=== PATIENT | male | born 1985 | race Caucasian/White ===

== ENCOUNTER 2021-04-29 19:03 | Emergency (ER) | payer MEDICAID, SELFPAY ==
[2021-04-29 19:05] VITALS: BP 141/98; PULSE 93; RESP 16; TEMP 35.9; O2SAT 100; BMI 33.0
[2021-04-29 19:08] VITALS: O2SAT 100
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
[2021-04-29] MEDS: Ondansetron 4 MG/2 ML Vial IV (19:29)
[2021-04-29] MEDS: HYDROmorphone 1 MG/ML Syringe IV ×2 (19:30→23:23)
[2021-04-29] MEDS: Diphth,Pertuss(Acell),Tet Vac 0.5 ML Vial IM (19:31)
[2021-04-29 19:39] LABS: Absolute Lymphocyte Count 4.32 X10^3/uL (0.83-4.51); Absolute Neutrophil Count 7.9 X10^3/uL (2.0-7.7); Basophil# 0.06 X10^3/uL; Basophil% 0.4 % (0-1); Eosinophil# 0.21 X10^3/uL; Eosinophils% 1.5 % (0-5); Hematocrit 39.6 % (40-54); Hemoglobin 13.1 g/dL (13.0-16.5); Lymphocyte # 4.32 X10^3/ul (0.83-4.51); Lymphocyte % 31.6 % (19-41); Mean Corp Hgb Conc 33.1 g/dL (32-36); Mean Corpuscular Hgb 29.2 pg (27.0-32.0); Mean Corpuscular Volume 88.2 fL (80-94); Mean Platelet Vol. 11.4 fl (6.2-12.0); Monocyte# 0.98 X10^3/uL; Monocyte% 7.2 % (0-10); NRBC Flagged by Analyzer 0 % (0-5); Neutrophil # 7.88 X10^3/uL (2.7-7.7); Neutrophil % 57.8 % (47-70); Platelet Count 237 K/mm3 (150-450); RBC Distribution Width CV 13.3 % (11.6-14.6); RBC Distribution Width SD 43.6 fl (35.1-43.9); Red Blood Count 4.49 M/mm3 (4.6-6.2); White Blood Count 13.7 K/mm3 (4.4-11.0)
[2021-04-29 19:46] LABS: Anion Gap 6 (5-15); BUN 20 mg/dL (7-18); BUN/Creat Ratio 20.1 RATIO (10-20); Calcium,Total 8.9 mg/dL (8.5-10.1); Chloride 108 mmol/L (98-107); Creatinine, Serum 0.99 mg/dL (0.70-1.30); EST Glomerular Filtration Rate 91 mL/min (>60); Est Glom Filt Rate - Afr Amer 110 mL/min (>60); Estimated Creatinine Clearance 107.53 ml/min; Glucose 116 mg/dL (74-106); Potassium 3.9 mmol/L (3.5-5.1); Sodium Level 140 mmol/L (136-145)
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
[2021-04-29 21:12] VITALS: BP 144/83; PULSE 90; RESP 20; O2SAT 100
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
[2021-04-29 21:30] VITALS: BP 142/81; PULSE 92; RESP 20; O2SAT 100
[2021-04-29 22:05] VITALS: BP 132/76
[2021-04-29 23:24] VITALS: BP 138/75; PULSE 94; RESP 18; O2SAT 94
--- NOTE | 2021-04-29 23:46 | ED.RN ---
PT removes himself from monitor. Monitor replaced frequently.
[2021-04-30 01:27] VITALS: BP 132/97; PULSE 82; RESP 18; O2SAT 94
== END 2021-04-30 01:32 | disposition short-term general hospital (02) ==
PROVIDERS: Emergency Provider Emergency Medicine
DX: S01.01XA Laceration without foreign body of scalp, initial encounter (principal); S27.1XXA Traumatic hemothorax, initial encounter; S22.41XA Multiple fractures of ribs, right side, initial encounter for closed fracture; V49.9XXA Car occupant (driver) (passenger) injured in unspecified traffic accident, initial encounter; Y93.89 Activity, other specified; Y92.9 Unspecified place or not applicable; Y99.9 Unspecified external cause status; M25.511 Pain in right shoulder; M79.661 Pain in right lower leg; F17.210 Nicotine dependence, cigarettes, uncomplicated
CPT/HCPCS: 12002; 70450; 71260; 72125; 73030; 73590; 74177; 80048; 85025; 90715; 96374; 96375; 96376; 99285; Q9967; J2405